=== PATIENT | female | born 1995 | race Caucasian/White ===

== ENCOUNTER → 2017-01-03 | Outpatient (REF) | payer OTHER | LOC: M LAB REF 16:50 | PROVIDERS: ATTEND Family Medicine | DX: Z12.4 Encounter for screening for malignant neoplasm of cervix (principal) | CPT/HCPCS: 87491; 87591; G0123 ==

== ENCOUNTER → 2018-03-02 | Outpatient (CLI) | payer OTHER | LOC: M RAD 08:36 | DX: R59.1 Generalized enlarged lymph nodes (principal) | CPT/HCPCS: 76536 ==

== ENCOUNTER → 2019-06-09 | Outpatient (REF) | payer OTHER ==
[2019-06-09 18:37] LABS: HCG, SERUM QUALITATIVE NEGATIVE (NEGATIVE)
== END ==
LOC: M SFHCPLAZ 15:23
PROVIDERS: ATTEND Family Medicine
DX: N91.2 Amenorrhea, unspecified (principal)

== ENCOUNTER → 2020-02-29 | Outpatient (REF) | payer OTHER | LOC: M SFHCPLAZ 17:25 | PROVIDERS: ATTEND Family Medicine | DX: Z12.4 Encounter for screening for malignant neoplasm of cervix (principal) ==

== ENCOUNTER 2021-02-22 14:56 | Emergency (ER) | payer OTHER ==
[~2021-02-22] VITALS: Ht 162.6 cm; Wt 68.2 kg
--- NOTE | 2021-02-22 15:15 | REP ---
INDICATION: left sided numbness COMPARISON: None. TECHNIQUE: Axial noncontrast images from the skull base to the vertex with coronal reformations. This CT examination was performed using the following dose reduction techniques: Automated exposure control, adjustment of mA and/or kv according to the patient's size, and use of iterative reconstruction technique. FINDINGS: The ventricles, sulci, and cisterns are normal in position and appearance. Blake-white differentiation is maintained. No acute intracranial hemorrhage, mass/mass effect, pathology or trauma/injury. No evidence for acute infarction. No extra-axial fluid collection. Calvarium is intact. Paranasal sinuses and mastoid air cells are clear. IMPRESSION: Normal noncontrast head CT. No evidence for acute intracranial pathology or trauma/injury. <Electronically signed by Kalin Blackwood > 02/22/21 [id number]
[2021-02-22] MEDS ORDERED: FLUTISP (17:18)
[2021-02-22] MEDS ORDERED: NEXP1IMP SC (17:18)
[2021-02-22] MEDS ORDERED: KETOROLAC 30 MG/ML 1ML VIAL IV ONE (18:50)
[2021-02-22] MEDS ORDERED: METOCLOPRAMIDE INJ 10MG/2ML VIAL (J2765 PER 1) IV ONE (18:50)
[2021-02-22] MEDS ORDERED: diphenhydrAMINE 50MG/ML VIAL (J1200) IV STA (18:50)
[2021-02-22] MEDS ORDERED: NS 1,000 ML IV ONE (18:50)
[2021-02-22 20:53] LABS: BASO # 0.1 10^3/uL (0.0-0.2); BASO % 0.5 % (0.0-1.0); EOS # 0.1 10^3/uL (0.0-0.5); EOS % 1.5 % (0.0-3.0); HEMATOCRIT 41.2 % (36.0-47.0); HEMOGLOBIN 13.7 g/dl (12.0-15.5); LYMPH # 3.8 10^3/uL (1.5-5.0); LYMPH % 39.7 % (24.0-44.0); MEAN CORPUSCULAR HEMOGLOBIN 29.3 pg (27.0-33.0); MEAN CORPUSCULAR HGB CONC 33.3 g/dl (32.0-36.5); MONO # 0.7 10^3/uL (0.0-0.8); MONO % 7.6 % (2.0-8.0); NEUTROPHILS # 4.8 10^3/uL (1.5-8.5); NEUTROPHILS % 50.4 % (36.0-66.0); PLATELET COUNT, AUTOMATED 250 10^3/uL (150-450); RED BLOOD COUNT 4.68 10^6/uL (4.00-5.40); WHITE BLOOD COUNT 9.6 10^3/uL (4.0-10.0)
[2021-02-22 21:22] LABS: ERYTHROCYTE SEDIMENTATION RATE 3 mm/hr (0-20)
--- NOTE | 2021-02-22 23:04 | REPVR ---
PROCEDURE INFORMATION: Exam: MR Head Without Contrast Exam date and time: 02/22/2021 6:50 PM Age: 25 years old Clinical indication: Speech disturbance; Slurred speech; Additional info: ASHER, slurred speech, left sided decr. Sensation TECHNIQUE: Imaging protocol: MR of the head without contrast. COMPARISON: CT Head without contrast 02/22/2021 3:05 PM FINDINGS: Brain: There is no evidence of infarct, castelan-white matter differentiation is preserved. There is no hemorrhage or extra-axial collection. There is no mass. DWI demonstrates no evidence of acute infarct. Gradient echo images demonstrate no evidence of hemorrhage. There is no evidence of demyelinating disease. There are no abnormal flow voids. Cerebral ventricles: There is no hydrocephalus. Bones/joints: Unremarkable. Paranasal sinuses: Normal as visualized. No acute sinusitis. Mastoid air cells: Normal as visualized. No mastoid effusion. Orbital cavity: Unremarkable. Soft tissues: Unremarkable. IMPRESSION: No intracranial lesion or injury Electronically signed by: Claude Power On 02/22/2021 23:03:36 PM
--- NOTE | 2021-02-22 23:06 | REPVR ---
PROCEDURE INFORMATION: Exam: MRA Head Without Contrast; Arteriography Exam date and time: 02/22/2021 6:50 PM Age: 25 years old Clinical indication: Speech disturbance; Slurred speech; Additional info: ASHER, slurred speech, left sided decr. Sensation TECHNIQUE: Imaging protocol: Magnetic resonance angiography head without contrast. Exam focused on the arteries. COMPARISON: CT Head without contrast 02/22/2021 3:05 PM FINDINGS: ANTERIOR CIRCULATION: Right internal carotid artery: Intracranial segment is patent with no significant stenosis. No aneurysm. Right middle cerebral artery: No occlusion or significant stenosis. No aneurysm. Right anterior cerebral artery: No occlusion or significant stenosis. No aneurysm. Left internal carotid artery: Intracranial segment is patent with no significant stenosis. No aneurysm. Left middle cerebral artery: No occlusion or significant stenosis. No aneurysm. Left anterior cerebral artery: No occlusion or significant stenosis. No aneurysm. POSTERIOR CIRCULATION: Right vertebral artery: No occlusion or significant stenosis. No aneurysm. Left vertebral artery: No occlusion or significant stenosis. No aneurysm. Basilar artery: No occlusion or significant stenosis. No aneurysm. Right posterior cerebral artery: There is a origin of the right posterior cerebral artery. No stenosis. No aneurysm. Left posterior cerebral artery: No occlusion or significant stenosis. No aneurysm. IMPRESSION: No intracranial stenosis or occlusion. No aneurysm. Electronically signed by: Claude Power On 02/22/2021 23:06:07 PM
[2021-02-22 23:29] VITALS: BP 104/57
== END 2021-02-22 23:53 | disposition home or self-care (01) ==
LOC: M ED 14:56
DX: R51.9 Headache, unspecified (principal); R20.2 Paresthesia of skin; Z88.0 Allergy status to penicillin; Z79.3 Long term (current) use of hormonal contraceptives
CPT/HCPCS: 70450; 70544; 70551; 80047; 83735; 84702; 85025; 85652; 96361; 96374; 96375; 99284; J1200; J1885; J2765

== ENCOUNTER 2021-06-07 12:39 | Emergency (ER) | payer OTHER ==
[~2021-06-07] VITALS: Ht 162.6 cm; Wt 67.4 kg
[~2021-06-07 12:39] MED LIST changes: -IBUP80TA; -INDO-16 PO; -SUMA100T2; -TOPA50TA8 PO
[2021-06-07] MEDS ORDERED: TOPA50TA8 PO (12:54)
[2021-06-07] MEDS ORDERED: SUMA100T2 (12:54)
[2021-06-07] MEDS ORDERED: IBUP80TA (12:54)
[2021-06-07 16:21] LABS: BASO # 0.1 10^3/uL (0.0-0.2); BASO % 0.5 % (0.0-1.0); EOS # 0.1 10^3/uL (0.0-0.5); EOS % 0.7 % (0.0-3.0); HEMATOCRIT 39.5 % (36.0-47.0); HEMOGLOBIN 13.2 g/dl (12.0-15.5); LYMPH # 3.1 10^3/uL (1.5-5.0); LYMPH % 31.4 % (24.0-44.0); MEAN CORPUSCULAR HEMOGLOBIN 29.1 pg (27.0-33.0); MEAN CORPUSCULAR HGB CONC 33.4 g/dl (32.0-36.5); MEAN CORPUSCULAR VOLUME 87.2 fl (80.0-96.0); MONO # 0.8 10^3/uL (0.0-0.8); MONO % 7.7 % (2.0-8.0); NEUTROPHILS # 5.8 10^3/uL (1.5-8.5); NEUTROPHILS % 59.4 % (36.0-66.0); PLATELET COUNT, AUTOMATED 267 10^3/uL (150-450); RED BLOOD COUNT 4.53 10^6/uL (4.00-5.40); WHITE BLOOD COUNT 9.8 10^3/uL (4.0-10.0)
[2021-06-07 16:47] LABS: ERYTHROCYTE SEDIMENTATION RATE 4 mm/hr (0-20)
[2021-06-07 16:52] LABS: ALBUMIN 3.9 GM/DL (3.2-5.2); ALT/SGPT 20 U/L (12-78); BILIRUBIN,DIRECT < 0.1 MG/DL (0.0-0.2); BILIRUBIN,TOTAL 0.3 MG/DL (0.2-1.0); BLOOD UREA NITROGEN 17 MG/DL (7-18); CALCIUM LEVEL 9.1 MG/DL (8.5-10.1); CARBON DIOXIDE LEVEL 22 MEQ/L (21-32); CHLORIDE LEVEL 111 MEQ/L (98-107); CREATININE FOR GFR 1.09 MG/DL (0.55-1.30); GLOMERULAR FILTRATION RATE > 60.0 (>60); GLUCOSE, FASTING 88 MG/DL (70-100); POTASSIUM SERUM 3.9 MEQ/L (3.5-5.1); RHEUMATOID FACTOR QUANT < 10.0 IU/ML (<15.0); SODIUM LEVEL 143 MEQ/L (136-145); TOTAL PROTEIN 7.1 GM/DL (6.4-8.2)
[2021-06-07] MEDS ORDERED: INDO-16 PO (17:17)
[2021-06-07 17:47] VITALS: BP 122/68
--- NOTE | 2021-06-08 05:17 | ECGEPIP ---
[facility] - ED Test Date: 2021-06-07 Pat Name: ESPINOZA KOHLER Department: Room: - Gender: Female [employer]: : 1995 Requested By: RAHUL LAWSON PA-C. Order Number: [id number] Reading MD: Wil Pryor Measurements Intervals [place] Rate: 56 P: 41 [place]: 92 QRS: 79 QRSD: 82 T: 69 QT: 434 QTc: 418 Interpretive Statements Sinus bradycardia with sinus arrhythmia with short [place] NONSPECIFIC T WAVE ABNORMALITY(S) NO PRIORS FOR COMPARISON Electronically Signed on 06-08-2021 5:17:04 EDT by Wil Pryor
[2021-06-09 17:07] LABS: ANTINUCLEAR ANTIBODIES DIRECT Negative (Negative); Lyme Disease IgG/IgM Antibodie <0.91 ISR (0.00-0.90); Lyme Disease IgM Ab Quantitati <0.80 index (0.00-0.79)
== END 2021-06-07 17:20 | disposition home or self-care (01) ==
LOC: M ED 12:39
DX: M25.50 Pain in unspecified joint (principal); R00.1 Bradycardia, unspecified; Z88.0 Allergy status to penicillin; Z79.899 Other long term (current) drug therapy

== ENCOUNTER → 2021-06-07 | Outpatient (CLI) | payer OTHER ==
[~2021-06-07] MED LIST: FLUTISP; IBUP80TA; INDO-16 PO; NEXP1IMP SC; SUMA100T2; TOPA50TA8 PO
== END ==
LOC: M LABSMTC 09:09
PROVIDERS: ATTEND Family Medicine
DX: Z11.52 Encounter for screening for COVID-19 (principal)

== ENCOUNTER → 2024-06-02 | Outpatient (REF) | payer OTHER ==
[~2024-06-02] MED LIST changes: +ETON68IM SC; +IBUP80TA; +INDO-16 PO; -NEXP1IMP SC; +SUMA100T2; +TOPA50TA8 PO
[2024-06-02 14:14] LABS: Trichomonas vaginalis (AMP) NOT DETECTED (NEGATIVE)
[2024-06-02 14:38] LABS: GC DNA AMPLIFICATION NEGATIVE (NEGATIVE)
== END ==
LOC: M SFHCWAGY 12:33
PROVIDERS: ATTEND Nurse Practitioner Family
DX: N73.9 Female pelvic inflammatory disease, unspecified (principal)

== ENCOUNTER → 2024-10-04 | Outpatient (CLI) | payer OTHER ==
[2024-10-04 10:49] LABS: ALBUMIN 3.9 G/DL (3.2-5.2); ALKALINE PHOSPHATASE 57 U/L (35-104); ALT/SGPT 16 U/L (7.0-40); AST/SGOT 15 U/L (<34); BASO # 0.1 10^3/uL (0.0-0.2); BASO % 0.9 % (0.0-1.0); BILIRUBIN,TOTAL 0.4 MG/DL (0.3-1.2); BLOOD UREA NITROGEN 20 MG/DL (9-23); CALCIUM LEVEL 9.3 MG/DL (8.5-10.1); CARBON DIOXIDE LEVEL 29 MMOL/L (20-31); CHLORIDE LEVEL 106 MMOL/L (98-107); CREATININE FOR GFR 0.75 MG/DL (0.55-1.30); EOS # 0.1 10^3/uL (0.0-0.5); EOS % 1.9 % (0.0-3.0); FREE T4 1.14 NG/DL (0.89-1.76); GLOMERULAR FILTRATION RATE > 60.0 (>60); GLUCOSE, FASTING 80 MG/DL (60-100); HEMATOCRIT 39.6 % (36.0-47.0); LYMPH % 33.7 % (24.0-44.0); MEAN CORPUSCULAR HEMOGLOBIN 29.7 pg (27.0-33.0); MEAN CORPUSCULAR HGB CONC 32.8 g/dl (32.0-36.5); MEAN CORPUSCULAR VOLUME 90.6 fl (80.0-96.0); MONO # 0.4 10^3/uL (0.0-0.8); MONO % 7.4 % (2.0-8.0); NEUTROPHILS # 3.3 10^3/uL (1.5-8.5); NEUTROPHILS % 55.9 % (36.0-66.0); PLATELET COUNT, AUTOMATED 258 10^3/uL (150-450); POTASSIUM SERUM 4.3 MMOL/L (3.5-5.1); RED BLOOD COUNT 4.37 10^6/uL (4.00-5.40); SODIUM LEVEL 141 MMOL/L (136-145); THYROID STIMULATING HORMONE 1.305 uIU/ML (0.55-4.78); TOTAL PROTEIN 7.1 G/DL (5.7-8.2); WHITE BLOOD COUNT 5.9 10^3/uL (4.0-10.0)
[2024-10-04 10:51] LABS: VITAMIN B12 LEVEL 381 PG/ML (211-911)
== END ==
LOC: M PLALAB 08:09
PROVIDERS: ATTEND Nurse Practitioner Family
DX: E55.9 Vitamin D deficiency, unspecified (principal)

== ENCOUNTER → 2024-12-22 | Outpatient (REF) | payer OTHER ==
[2024-12-22 16:49] LABS: Trichomonas vaginalis (AMP) NOT DETECTED (NEGATIVE)
[2024-12-22 17:12] LABS: GC DNA AMPLIFICATION NEGATIVE (NEGATIVE)
== END ==
LOC: M PLALAB 13:54
PROVIDERS: ATTEND Obstetrics & Gynecology
DX: N89.8 Other specified noninflammatory disorders of vagina (principal)

== ENCOUNTER → 2025-07-18 | Outpatient (CLI) | payer OTHER ==
[2025-07-18 17:48] LABS: BASO # 0.0 10^3/uL (0.0-0.2); BASO % 0.4 % (0.0-1.0); EOS # 0.2 10^3/uL (0.0-0.5); EOS % 2.2 % (0.0-3.0); LYMPH # 3.0 10^3/uL (1.5-5.0); LYMPH % 35.6 % (24.0-44.0); MONO # 0.5 10^3/uL (0.0-0.8); MONO % 6.2 % (2.0-8.0); NEUTROPHILS # 4.6 10^3/uL (1.5-8.5); NEUTROPHILS % 55.4 % (36.0-66.0); PLATELET COUNT, AUTOMATED 265 10^3/uL (150-450)
[2025-07-18 18:08] LABS: C REACTIVE PROTEIN QUANTITATIV < 0.50 MG/DL (<1.0); FREE T4 1.29 NG/DL (0.89-1.76); RHEUMATOID FACTOR QUANT < 3.5 IU/ML (<14); VITAMIN B12 LEVEL 488 PG/ML (211-911)
[2025-07-18 18:09] LABS: ALT/SGPT 15 U/L (7.0-40); AST/SGOT 17 U/L (<34); CALCIUM LEVEL 9.3 MG/DL (8.5-10.1); CARBON DIOXIDE LEVEL 25 MMOL/L (20-31); CHLORIDE LEVEL 107 MMOL/L (98-107); CREATININE FOR GFR 0.88 MG/DL (0.55-1.30); GLOMERULAR FILTRATION RATE > 90.0 (>60); POTASSIUM SERUM 4.3 MMOL/L (3.5-5.1); SODIUM LEVEL 143 MMOL/L (136-145)
[2025-07-22 19:18] LABS: LYME TOTAL ANTIBODY CIA <= 0.90 Index (<=0.90)
== END ==
LOC: M PLALAB 15:12
PROVIDERS: ATTEND Nurse Practitioner Family
DX: M25.50 Pain in unspecified joint (principal); G43.909 Migraine, unspecified, not intractable, without status migrainosus; E55.9 Vitamin D deficiency, unspecified

== ENCOUNTER 2025-08-19 08:37 | Emergency (ER) | payer OTHER ==
[~2025-08-19] VITALS: Ht 162.6 cm; Wt 58.2 kg
[2025-08-19 08:40] VITALS: O2SAT 100
[2025-08-19 09:48] LABS: BASO # 0.1 10^3/uL (0.0-0.2); BASO % 0.5 % (0.0-1.0); EOS # 0.2 10^3/uL (0.0-0.5); EOS % 2.4 % (0.0-3.0); LYMPH # 2.5 10^3/uL (1.5-5.0); LYMPH % 27.0 % (24.0-44.0); MONO # 1.3 10^3/uL (0.0-0.8); MONO % 13.8 % (2.0-8.0); NEUTROPHILS # 5.1 10^3/uL (1.5-8.5); NEUTROPHILS % 56.0 % (36.0-66.0); PLATELET COUNT, AUTOMATED 240 10^3/uL (150-450)
[2025-08-19 09:52] LABS: KETONE, URINE AUTO RFX NEGATIVE (NEGATIVE); RBC, URINE AUTO RFX 3 /HPF (0-3); SQUAM EPITHELIAL CELL UR AURFX 1 /HPF (0-6)
[2025-08-19 09:53] LABS: LEUKOCYTE ESTERASE UR AUTO RFX 1+ (NEGATIVE); NITRITE, URINE AUTO RFX POSITIVE (NEGATIVE); WBC, URINE AUTO RFX 43 /HPF (0-3)
[2025-08-19 10:23] LABS: ALT/SGPT 17 U/L (7.0-40); AST/SGOT 15 U/L (<34); CALCIUM LEVEL 9.3 MG/DL (8.5-10.1); CARBON DIOXIDE LEVEL 22 MMOL/L (20-31); CHLORIDE LEVEL 107 MMOL/L (98-107); CREATININE FOR GFR 0.93 MG/DL (0.55-1.30); GLOMERULAR FILTRATION RATE 84.3 (>60); POTASSIUM SERUM 3.9 MMOL/L (3.5-5.1); SODIUM LEVEL 141 MMOL/L (136-145)
[2025-08-19 10:51] LABS: HCG, SERUM QUALITATIVE NEGATIVE (NEGATIVE)
[2025-08-19 10:55] LABS: HIV 1&2 SCREEN NEGATIVE (NEGATIVE)
[2025-08-19] MEDS: KETOROLAC 30 MG/ML 1 ML VIAL IV ONE (10:58)
[2025-08-19 11:12] LABS: Trichomonas vaginalis (AMP) NOT DETECTED (NEGATIVE)
[2025-08-19 11:36] LABS: GC DNA AMPLIFICATION NEGATIVE (NEGATIVE)
[2025-08-19] MEDS ORDERED: PHEN-501 PO (11:36)
[2025-08-19] MEDS ORDERED: NITR-67 PO (11:36)
[2025-08-19] MEDS ORDERED: RIZA10TA2 PO (11:36)
[2025-08-19] MEDS ORDERED: HOME MED LIST COMPLETE! XX SCH (11:40)
[2025-08-19 13:00] VITALS: BP 95/52; TEMP 98.7
[2025-08-19] MEDS ORDERED: VALT1TAB PO (13:35)
[2025-08-19] MEDS ORDERED: DIBU28OI2 TOP (13:39)
[2025-08-22 18:57] LABS: HSV SOURCE Serum; HSV-1 DNA Not Detected (Not Detected); HSV-2 DNA Detected (Not Detected)
== END 2025-08-19 14:16 | disposition home or self-care (01) ==
LOC: M ED 08:37
DX: N39.0 Urinary tract infection, site not specified (principal); A60.04 Herpesviral vulvovaginitis; F10.10 Alcohol abuse, uncomplicated; Z88.0 Allergy status to penicillin; Z79.01 Long term (current) use of anticoagulants; Z79.2 Long term (current) use of antibiotics; Z79.899 Other long term (current) drug therapy
CPT/HCPCS: 80053; 81001; 84703; 85025; 86780; 87086; 87210; 87252; 87389; 87529; 87661; 87810; 87850; 96374; 99284; J1885

== ENCOUNTER 2025-08-23 15:08 | Emergency (ER) | payer OTHER ==
[~2025-08-23] VITALS: Ht 162.6 cm; Wt 60.2 kg
[~2025-08-23 15:08] MED LIST changes: +DIBU28OI2 TOP; +NITR-67 PO; +PHEN-501 PO; +RIZA10TA2 PO; +VALT1TAB PO
[2025-08-23 16:38] LABS: BASO # 0.1 10^3/uL (0.0-0.2); BASO % 0.7 % (0.0-1.0); EOS # 0.3 10^3/uL (0.0-0.5); EOS % 3.1 % (0.0-3.0); LYMPH # 3.9 10^3/uL (1.5-5.0); LYMPH % 42.0 % (24.0-44.0); MONO # 0.8 10^3/uL (0.0-0.8); MONO % 8.8 % (2.0-8.0); NEUTROPHILS # 4.2 10^3/uL (1.5-8.5); NEUTROPHILS % 45.2 % (36.0-66.0); PLATELET COUNT, AUTOMATED 285 10^3/uL (150-450)
[2025-08-23 17:04] LABS: CALCIUM LEVEL 8.8 MG/DL (8.5-10.1); CARBON DIOXIDE LEVEL 24.0 MMOL/L (20-31); CHLORIDE LEVEL 107.0 MMOL/L (98-107); CREATININE FOR GFR 1.01 MG/DL (0.55-1.30); GLOMERULAR FILTRATION RATE 76.3 (>60); POTASSIUM SERUM 4.0 MMOL/L (3.5-5.1); SODIUM LEVEL 141.0 MMOL/L (136-145)
[2025-08-23] MEDS: ACETAMINOPHEN *IV* 1,000 MG in IV 1 EA IV ONE (20:10)
[2025-08-23] MEDS: cefTRIAXone SOD 1 GM in DEXTROSE 5% (D5W) ADV/MINI-BAG 50 ML IV ONE (20:10)
[2025-08-23 20:39] LABS: INR 0.98
[2025-08-23] MEDS ORDERED: CEPH500C PO (21:13)
[2025-08-23] MEDS ORDERED: ELIQ5TAB PO (21:13)
[2025-08-23] MEDS: APIXABAN 5 MG TAB PO ONE (21:27)
[2025-08-23 21:37] VITALS: BP 111/63; TEMP 98.2; O2SAT 97
== END 2025-08-23 21:39 | disposition home or self-care (01) ==
LOC: M ED 15:08
DX: I82.621 Acute embolism and thrombosis of deep veins of right upper extremity (principal); L03.113 Cellulitis of right upper limb; Z88.0 Allergy status to penicillin; Z79.2 Long term (current) use of antibiotics; Z79.01 Long term (current) use of anticoagulants; Z79.899 Other long term (current) drug therapy
CPT/HCPCS: 80048; 83605; 85025; 85610; 85730; 86140; 87040; 93971; 96365; 96367; 99283; J0134; J0696

== ENCOUNTER → 2025-08-25 | Outpatient (CLI) | payer OTHER ==
[~2025-08-25] MED LIST changes: +CEPH500C PO; +ELIQ5TAB PO
[2025-08-25 17:55] LABS: BASO # 0.1 10^3/uL (0.0-0.2); BASO % 0.4 % (0.0-1.0); EOS # 0.1 10^3/uL (0.0-0.5); EOS % 0.5 % (0.0-3.0); LYMPH # 3.7 10^3/uL (1.5-5.0); LYMPH % 33.5 % (24.0-44.0); MONO # 0.6 10^3/uL (0.0-0.8); MONO % 5.1 % (2.0-8.0); NEUTROPHILS # 6.7 10^3/uL (1.5-8.5); NEUTROPHILS % 60.1 % (36.0-66.0); PLATELET COUNT, AUTOMATED 343 10^3/uL (150-450)
[2025-08-25 18:17] LABS: CHOLESTEROL LEVEL 129.0 MG/DL (<200); CHOLESTEROL RISK RATIO 2.93 (<5); LDL CHOLESTEROL 74.3 MG/DL (<100); NON-HDL-C 85.1 MG/DL; TRIGLYCERIDES LEVEL 54.0 MG/DL (<150)
[2025-08-25 18:18] LABS: VITAMIN B12 LEVEL 1193.0 PG/ML (211-911)
[2025-08-30 03:22] LABS: CARDIOLIPIN IGA ANTIBODY < 2.0 APL-U/mL (<20.0); CARDIOLIPIN IGG ANTIBODY < 2.0 GPL-U/mL (<20.0); CARDIOLIPIN IGM ANTIBODY 10.8 MPL-U/mL (<20.0)
[2025-08-30 15:12] LABS: BETA-2 GLYCOPROTEIN I ABY IGA < 2.0 U/mL (<20.0); BETA-2 GLYCOPROTEIN I ABY IGG < 2.0 U/mL (<20.0); BETA-2 GLYCOPROTEIN I ABY IGM 9.3 U/mL (<20.0)
[2025-09-01 22:54] LABS: FACTOR II PROTHROMBIN GENE AN NEGATIVE
[2025-09-06 19:42] LABS: FACTOR V LEIDEN FOR MEDINET POSITIVE
[2025-09-07 11:40] LABS: DRVV SCREEN 71.8 SECONDS
[2025-09-07 11:41] LABS: PTT LUPUS TYPE ANTICOAG SCREEN 1.9 (0-1.20)
[2025-09-07 11:48] LABS: DRVV CONFIRM 60.0 SECONDS; LUPUS CONFIRM RATIO 1.6
[2025-09-07 12:15] LABS: NORMALIZED RATIO 1.18 (0.00-1.20)
== END ==
LOC: M PLALAB 12:20
PROVIDERS: ATTEND Family Medicine
DX: I82.621 Acute embolism and thrombosis of deep veins of right upper extremity (principal); R76.89 Other specified abnormal immunological findings in serum; D50.9 Iron deficiency anemia, unspecified

== ENCOUNTER → 2025-09-14 | Outpatient (CLI) | payer OTHER ==
[~2025-09-14] MED LIST changes: +ISOVUE-370 76% 100 ML VIAL ONE
== END ==
LOC: M PLAIMG 07:53
PROVIDERS: ATTEND Family Medicine
DX: I82.621 Acute embolism and thrombosis of deep veins of right upper extremity (principal); R91.1 Solitary pulmonary nodule
CPT/HCPCS: 71260; 74177; Q9967